=== PATIENT | female | born 1995 | race Caucasian/White ===

== ENCOUNTER 2017-03-14 00:26 | Emergency (ER) | payer BC ==
[~2017-03-14] VITALS: Ht 167.6 cm; Wt 62.3 kg
[~2017-03-14 00:26] MED LIST: CHOL20009 PO; SNG10 PO
[2017-03-14 00:35] VITALS: TEMP 36.7; Ht 167.6 cm; Wt 62.3 kg
[2017-03-14] MEDS ORDERED: LORAZEPAM 0.5 MG TAB SL STA (00:43)
[2017-03-14] MEDS ORDERED: KETOROLAC TROMETHAMINE 60 MG/2 ML VIAL IM STA (00:51)
[2017-03-14] MEDS ORDERED: MULTIVITAMIN TAB PO STA (00:52)
[2017-03-14] MEDS ORDERED: ASPIRIN 81 MG CHEW PO STA (00:52)
[2017-03-14] MEDS ORDERED: ACETAMINOPHEN 500 MG TAB PO STA (00:52)
[2017-03-14 01:35] VITALS: BP 119/68; PULSE 96; O2SAT 98
--- NOTE | 2017-03-14 02:06 | EMERGENCY ROOM VISIT NOTE ---
History Report prepared by Elida: Aundrea Rangel Under the Supervision of: Dr. Fernando Vega D.O. First contact with patient: 00:37 Chief Complaint: SUN BURN Stated Complaint: SHAKING/REACTION TO SUN POISIONING History of Present Illness The patient is a 21 year old female who presents to the Emergency Room with complaints of persistent shaking after getting sunburn today. She was at the pool today. She was lying on her back and ended up with sunburn on her front side. She has not been able to stop shaking from the pain. She has applied aloe 4 times today to no significant relief. She denies any chest pain, SOB, nausea, vomiting, diarrhea, or difficulty swallowing. She has not noticed any bubbles. She denies any new medications or recent travel. Source of History: patient Onset: today Position: other (global) Quality: other (shaking) Timing: other (persistent) Associated Symptoms: No chest pain, No SOB, No nausea, No vomiting, No diarrhea Note: Pt has sunburn pain. Pt denies difficulty swallowing. Review of Systems See HPI for pertinent positives & negatives. A total of 10 systems reviewed and were otherwise negative. Past Medical & Surgical Medical Problems: (1) Asthma Surgical Problems: (1) S/P tonsillectomy and adenoidectomy Family History Diabetes mellitus Heart disease Social History Smoking Status: Never Smoker Alcohol Use: none Housing Status: lives with family Occupation Status: employed, student Current/Historical Medications No Active Prescriptions or Reported Meds Allergies Coded Allergies: Amoxicillin (Verified Allergy, Unknown, UNKNOWN, 03/14/17) Penicillins (Verified Allergy, Unknown, 03/14/17) Physical Exam Vital Signs Date Time Temp Pulse Resp B/P (MAP) Pulse Ox O2 Delivery O2 Flow Rate FiO2 03/14/17 01:35 96 18 119/68 98 03/14/17 00:35 36.7 94 16 118/69 99 Room Air Physical Exam GENERAL: sitting up in bed, disheveled, anxious, nontoxic EYE EXAM: normal conjunctiva OROPHARYNX: no exudate, no erythema, lips, buccal mucosa, and tongue normal and mucous membranes are moist NECK: supple, no nuchal rigidity, no adenopathy, non-tender LUNGS: Clear to auscultation. Normal chest wall mechanics HEART: no murmurs, S1 normal and S2 normal ABDOMEN: abdomen soft, non-tender, normo-active bowel sounds, no masses, no rebound or guarding. BACK: Back is symmetrical on inspection and there is no deformity, no midline tenderness, no CVA tenderness. SKIN: diffuse erythema over the entirety of the anterior aspect of the body sparing the breasts and genitals, no blisters, no sloughing of the skin. UPPER EXTREMITIES: upper extremities are grossly normal. LOWER EXTREMITIES: No pitting edema. NEURO EXAM: Normal sensorium, cranial nerves II-XII grossly intact, normal speech, no gross weakness of arms, no gross weakness of legs. Medical Decision & Procedures Medications Administered Medications (Trade) Dose Ordered Sig/Kurtis Route Start Time Stop Time Status Last Admin Dose Admin Lorazepam (Ativan Tab) 0.5 mg NOW STAT SL 03/14/17 00:43 03/14/17 00:44 DC 03/14/17 01:10 0.5 MG Ketorolac Tromethamine (Toradol Inj) 60 mg NOW STAT IM 03/14/17 00:51 03/14/17 00:52 DC 03/14/17 01:10 60 MG Aspirin (Aspirin Chew) 324 mg NOW STAT PO 03/14/17 00:52 03/14/17 00:54 DC 03/14/17 01:09 324 MG Acetaminophen (Tylenol Tab) 1,000 mg NOW STAT PO 03/14/17 00:52 03/14/17 00:54 DC 03/14/17 01:10 1,000 MG Multivitamins (Multivitamin Tab) 1 tab NOW STAT PO 03/14/17 00:52 03/14/17 00:54 DC 03/14/17 01:10 1 TAB ED Course ED COURSE: Vital signs were reviewed and showed normal vitals. The patients medical record was reviewed The above diagnostic studies were performed and reviewed. ED treatments and interventions as stated above. 0038: The patient was evaluated in room B4. A complete history and physical examination was performed. 0043: Lorazepam 0.5 mg SL. 0051: Toradol Inj 60 mg IM. 0052: Multivitamins 1 tab PO, Acetaminophen 1000 mg PO, Aspirin 324 mg PO. 0128: Upon reevaluation, the patient is feeling better.I discussed my findings with the patient and she understands and agrees with the treatment plan. Based on the patients age, coexisting illnesses, exam and lab findings the decision to treat as an outpatient was made. The patient remained stable while under my care. The patient appeared well at the time of discharge. Medical Decision Differential diagnosis includes etiologies such as sunburn, cellulitis, abscess , MRSA infection, DVT, necrotizing fasciitis, dermatitis, drug eruption, as well as others were entertained. Medication Reconciliation: I attest that I have personally reviewed the patient' s current medication list. Blood pressure screening: Patient was found to have normal blood pressure on screening and does not require follow-up. Patient is a 21-year-old female who presents the ER for diffuse erythema on the anterior aspect of her body. She was out in the sun all day. She has a diffuse first degree burn on the anterior aspect of her body. She had a slight tremor in the upper extremities which resolves with movement and when distracted. She was given Ativan, IM Toradol, Tylenol, aspirin, and a MTV. Following this patient also felt better. She was discharged follow-up with her PCP and use aloe as needed along with Tylenol and Motrin. She was instructed not to drink alcohol, drive or operate heavy machinery for the next 12 hours. Discussed with Pt concerning signs and symptoms to watch out for. Pt was instructed to follow up with their PCP and discussed with the patient their option to return to the ED at anytime for persistent or worsening symptoms. The appropriate anticipatory guidance and out-patient management, including indications for return to the emergency department, were explained at length to the patient and understood. Impression Primary Impression: Sunburn Scribe Attestation The scribe's documentation has been prepared under my direction and personally reviewed by me in its entirety. I confirm that the note above accurately reflects all work, treatment, procedures, and medical decision making performed by me. Departure Information Dispostion Home / Self-Care Prescriptions No Active Prescriptions or Reported Meds Referrals Shanda Philippe, C.R.N.P. Forms HOME CARE DOCUMENTATION FORM, IMPORTANT VISIT INFORMATION, WORK / SCHOOL INSTRUCTIONS Patient Instructions [facility] [place] Additional Instructions Please follow up with your primary care doctor with in the next 24 hours. Any worsening of your symptoms, please return to the ED immediately. This includes fevers greater than 100.4, worsening pain, persistent nausea vomiting, confusion , or any other concerning signs or symptoms from your standpoint. Please continue Tylenol or Motrin as needed for pain. No driving, drinking alcohol or operating heavy machinery for the next 12 hours.
== END 2017-03-14 01:36 | disposition home or self-care (01) ==
LOC: C.EDB 00:27
DX: L55.9 Sunburn, unspecified (principal); J45.909 Unspecified asthma, uncomplicated; Z83.3 Family history of diabetes mellitus; Z82.49 Family history of ischemic heart disease and other diseases of the circulatory system

== ENCOUNTER → 2017-08-12 | Outpatient (CLI) | payer BC ==
[2017-08-16 02:18] LABS: CHLAMYDIA TRACH RNA*** NOT DETECTED (NOT DETECTED); GC (NEIS GONORRHOEAE)RNA** NOT DETECTED (NOT DETECTED); TRICHOMONAS VAGINALIS RNA** NOT DETECTED (NOT DETECTED)
== END | disposition home or self-care (01) ==
LOC: C.LABSPEC 11:42
PROVIDERS: ATTEND Obstetrics & Gynecology
DX: Z11.3 Encounter for screening for infections with a predominantly sexual mode of transmission (principal)

== ENCOUNTER 2021-12-10 04:19 | Inpatient (IN) ==
[2021-12-10] MEDS ORDERED: AZITHROMYCIN 250 MG TAB PO ONE ×2 (04:52→05:30)
[2021-12-10] MEDS ORDERED: BETAMETH SOD PHOS/ACETATE IA 6 MG/ML IM STA (04:52)
[2021-12-10] MEDS ORDERED: LACTATED RINGER'S 1,000 ML IV ONE (04:54)
[2021-12-10] MEDS ORDERED: LACTATED RINGER'S 1,000 ML IV PRN ×2 (04:54→07:34)
[2021-12-10] MEDS ORDERED: MAGNESIUM SULFATE / WTR 40 GM/1,000 ML BAG IV SCH (05:00)
[2021-12-10] MEDS ORDERED: MAG SULFATE 6GM BOLUS FROM BAG IV ONE (05:00)
[2021-12-10] MEDS ORDERED: ceFAZolin 1000MG 1,000 MG/7.5 ML SYR IV SCH (05:00)
--- NOTE | 2021-12-10 05:01 | History & Physical Report ---
Date of Service December 10, 2021 Assessment & Plan (1) PROM (premature rupture of membranes): (2) with 33 completed weeks gestation: (3) Gestational diabetes: Plan: grossly ruptures and nancy, uncomfortable with contractions. Will attempt tocolysis in the event we can eventually transfer with mag. steroids. abio for prom and gbs unknown status. Hives allergy to pcn, amoxicillin, so will treat with oral azithromycin and ancef, monitoring closely. Fetus category one. If able to get contractions to space, will attempt transfer. If cannot and labors, will have to keep here and likely the baby will need to be transferred. Patient expresses understanding. Will call [facility] to see about availability in event able to transfer. Will need to go by air if traveling. History of Present Illness Chief Complaint: thinks her water broke Primary Care Provider: YONATAN Alcantara Patient is a 26yowf with iup at 33 2/7 weeks who presents to labor and delivery c/o rom. She rolled over in bed at about 3:30am, heard a pop and had a large gush of clear fluid. She continues to contract. She notes +fm. NO bleeding. and Delivery Plans Patient does not want to discuss previous termination or STD History FOB hx Bicuspid valve disorder - echo 22-24 wk - baby needs 6month f/u after delivery Patient hx Asthma- uses inhaler PRN s/p pfizer GDM w/16wk glucola *Begin monthly AC Us's @24wks OB Labs: Blood Type A Positive 06/17/21 Antibody Screen NEGATIVE 06/17/21 Hemoglobin 13.0 g/dL (12.0-16.0) 11/04/21 Hematocrit 39.4 % (37-47) 11/04/21 Mean Corpuscular Volume 91.7 fL (80-100) 06/17/21 Platelet Count 355 K/uL (130-400) 06/17/21 Rubella IgG Antibody Immune (Immune) 06/17/21 Rapid Plasma Reagin Nonreactive (Nonreactive) 06/17/21 Hepatitis B Surface Antigen Neg (Neg) 06/17/21 HIV (1&2) Ab and P24 Ag, 4th Gener Neg (Neg) 06/17/21 Glucose 1 Hour 50 gm Load 204 mg/dl (70-130) H 08/14/21 OB Optional Labs: Chlamydia trachomatis RNA NOT DETECTED (NOT DETECTED) 06/17/21 Neisseria gonorrhoeae RNA NOT DETECTED (NOT DETECTED) 06/17/21 Labs Reviewed: declines genetics/cf/sma/afp--akh Allergies Allergy/AdvReac Type Severity Reaction Status Date / Time amoxicillin Allergy Unknown Hives Verified 12/10/21 04:49 Penicillins Allergy Unknown Hives Verified 12/10/21 04:49 lactose AdvReac Mild Unknown Verified 12/10/21 04:49 Home Medications Medication Instructions Recorded Confirmed Type albuterol sulfate 90 mcg/actuation See Rx Instructions INH .COMPLEX 12/17/19 12/10/21 Rx aerosol inhaler (Proventil HFA) PRN #6.7 gm cholecalciferol (vitamin D3) 1 tab PO DAILY 12/11/20 12/10/21 History prenat.vits,omer,[id number] 1 tab PO DAILY 06/10/21 12/10/21 History acetone (urine) test (Ketone Urine #50 ea 09/07/21 12/02/21 Rx Test) blood sugar diagnostic (OneTouch #150 ea 09/07/21 12/02/21 Rx Verio test strips) blood-glucose meter (OneTouch #1 ea 09/07/21 12/02/21 Rx Verio Flex meter) lancets 33 gauge (OneTouch Delica #150 ea 09/07/21 12/02/21 Rx Plus Lancet) Patient History Medical History Asthma Chlamydia 2015 No acute medical problems Surgical History S/P tonsillectomy Family History Brother Asthma Mother Breast cancer, Onset Age: 42 tested, BRCA negative Grandfather (Paternal) Lung cancer Grandfather (Paternal) No problems noted. 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 Beliefs That Will Affect Care: None marital status: Single marital status details: Tristian Wheeler (28) [phone] Current Living Situation: Significant Other Current Living Situation Comment: house current occupational status: student 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[employer] Other Information That Helps Us Care for You: No Feels Safe at Home: Yes Safety Concerns: Feels Safe At This Time Dental Care, Regularly: Yes Physical Activity Frequency: 1-2 Times per Week Seatbelt Use: always Assistive Devices: None OB History G1--10/2014, eab [employer] History noncontributory Physical Exam Constitutional: WD/WN, vitals as above Cardiovascular: Extremities: no calf tenderness and no edema Gastrointestinal (Abdomen): soft, gravid , nt Psychiatric: A+Ox3, euthymic affect Genitourinary: sse--difficult to visualize cervix secondary to copious clear fluid and mucous sve--/-2 bedside us--cephalic toco--q2min efm--150s wtih mod variability, small accels, no decels Results & Data ([facility]) Vital Signs (Past 12 Hours) Vital Signs Temp Pulse Resp BP 12/10/21 04:36 37.3 C 120 H 18 126/83 Coding Level of Care Code 93630 Office/Outpt Visit, Est Diagnoses PROM (premature rupture of membranes) O42.90 with 33 completed weeks gestation Z3A.33 Gestational diabetes O24.419
[2021-12-10 05:36] LABS: Basophils # (auto) 0.01 K/uL (0-0.2); Basophils % (auto) 0.1 %; Eosinophils # (auto) 0.09 K/uL (0-0.5); Eosinophils % (auto) 1.2 %; Hematocrit (blood only) 38.9 % (37-47); Hemoglobin 13.4 g/dL (12.0-16.0); Immature Granulocytes # (auto) 0.03 K/uL (0.00-0.02); Immature Granulocytes % (auto) 0.4 %; Lymphocytes # (auto) 0.75 K/uL (1.2-3.4); Lymphocytes % (auto) 9.8 %; Mean Corpuscular Hemoglobin 32.1 pg (25-34); Mean Corpuscular Hgb Conc 34.4 g/dL (32-36); Mean Corpuscular Volume 93.1 fL (80-100); Mean Platelet Volume 10.9 fL (7.4-10.4); Monocytes # (auto) 0.52 K/uL (0.11-0.59); Monocytes % (auto) 6.8 %; Neutrophils # (auto) 6.24 K/uL (1.4-6.5); Neutrophils % (auto) 81.7 %; Platelet Count 170 K/uL (130-400); RDW Coefficient of Variation 13.4 % (11.5-14.5); RDW Standard Deviation 45.7 fL (36.4-46.3); Red Blood Count 4.18 M/uL (4.2-5.4); White Blood Count 7.64 K/uL (4.8-10.8)
--- NOTE | 2021-12-10 05:37 | Obstetrical Progress Note ---
Date of Service December 10, 2021 Assessment & Plan (1) with 33 completed weeks gestation: (2) PROM (premature rupture of membranes): Plan: Contractions are spacing with mag. antibiotics in and steroids given. fetus category one consistent with mag effect. Spoke with Dr. Valero at [facility] and they will accept in transfer. Feel comfortable transferring via helicopter, but if unavailable, may need to keep here longer to make sure not going to actively labor on us, but again, looks like improving and spacing. Subjective Patient has received all meds. 6 gm bolus now going in. Vomitted. Notes contractions less intense and spacing some. Physical Exam Physical Exam: cx--deferred toco--q5 efm--150s with min to mod variabilty from mag effect, no decels Results & Data ([facility]) Vital Signs (Past 12 Hours) Vital Signs Temp Pulse Resp BP 12/10/21 04:51 37.3 C 18 12/10/21 04:36 37.3 C 120 H 18 126/83 PG Care Time/CCT Total # of Minutes Spent Total Time Spent with Patient: Total time spent is greater than 50% in coordination of care (as documented) at patient's floor/unit and/or counseling patient: Coding Level of Care Code None Diagnoses with 33 completed weeks gestation Z3A.33 PROM (premature rupture of membranes) O42.90
--- NOTE | 2021-12-10 06:35 | Obstetrical Progress Note ---
Date of Service December 10, 2021 Assessment & Plan (1) with 33 completed weeks gestation: (2) PROM (premature rupture of membranes): Plan: Patient is unchanged, and contractions are spaced but not adequate. Plan to bolus 2gm and increase to 3 gm per hour. No one is flying currently. Soonest we can get an ambulance from our services is 10am. [facility] is checking air again at 7 and if not flying will send an ambulance from their facility, which would mean a 9am arrivial. If patient starts changing, will turn off mag and let her labor and deal with the baby. If no change in cervix, will place on ambulance when it arrives. Patient was unable to keep down the azithromycin. Fetus reassuring category one. Subjective Patient notes contractions are spaced, shorter and less intense. Physical Exam Physical Exam: cx--/-2 toco--q3-5min, mag at 2 efm--150s with mod variability, no accels , no decels, mag effect Results & Data ([facility]) Vital Signs (Past 12 Hours) Vital Signs Temp Pulse Resp BP Pulse Ox 12/10/21 06:28 115 H 99 12/10/21 06:23 112 H 100 12/10/21 06:22 120 H 117/72 12/10/21 06:18 109 H 98 12/10/21 06:13 110 H 98 12/10/21 06:08 115 H 98 12/10/21 06:07 109 H 120/75 12/10/21 06:03 112 H 99 12/10/21 05:58 120 H 100 12/10/21 05:53 126 H 98 12/10/21 05:52 116 H 110/63 12/10/21 05:48 115 H 99 12/10/21 05:43 123 H 98 12/10/21 05:38 120 H 99 12/10/21 05:37 116 H 112/74 12/10/21 04:51 37.3 C 18 12/10/21 04:36 37.3 C 120 H 18 126/83 PG Care Time/CCT Total # of Minutes Spent Total Time Spent with Patient: Total time spent is greater than 50% in coordination of care (as documented) at patient's floor/unit and/or counseling patient: Coding Level of Care Code None Diagnoses with 33 completed weeks gestation Z3A.33 PROM (premature rupture of membranes) O42.90
[2021-12-10] MEDS ORDERED: AZITHROMYCIN 500 MG in DEXTROSE 5% 250 ML IV STA (06:36)
[2021-12-10] MEDS ORDERED: MAG SULFATE BOLUS FROM BAG IV ONE (06:45)
[2021-12-10] MEDS ORDERED: ePHEDrine sulfate 50 MG/ML AMP ONE (07:30)
[2021-12-10] MEDS ORDERED: SODIUM CHLORIDE 0.9% INJ 10 ML VIAL ONE (07:30)
[2021-12-10] MEDS ORDERED: BUPIVACAINE 0.25% 30 ML VIAL ONE (07:31)
[2021-12-10] MEDS ORDERED: fentaNYL citrate 100 MCG/2 ML VIAL ONE (07:31)
[2021-12-10] MEDS ORDERED: fentaNYL 2MCG/ML ROPIVACAINE 1.25MG/ML 100 ML BAG EPI ONE (07:31)
--- NOTE | 2021-12-10 07:32 | Anesthesiology Consultation ---
Date of Service December 10, 2021 Assessment & Plan (1) Encounter for pre-operative examination: Chart Review Chart Review: Acceptable Risk for Labor Epidural History Height/Weight Height: 5 ft 5 in Weight: 164 kg Allergies Allergy/AdvReac Type Severity Reaction Status Date / Time amoxicillin Allergy Unknown Hives Verified 12/10/21 04:49 Penicillins Allergy Unknown Hives Verified 12/10/21 04:49 lactose AdvReac Mild Unknown Verified 12/10/21 04:49 Medications Home Medications Medication Instructions Recorded Confirmed Last Taken albuterol sulfate 90 mcg/actuation See Rx Instructions INH .COMPLEX 12/17/19 12/10/21 Unknown aerosol inhaler (Proventil HFA) PRN #6.7 gm cholecalciferol (vitamin D3) 1 tab PO DAILY 12/11/20 12/10/21 Unknown prenat.vits,omer,[id number] 1 tab PO DAILY 06/10/21 12/10/21 12/09/21 acetone (urine) test (Ketone Urine #50 ea 09/07/21 12/02/21 Unknown Test) blood sugar diagnostic (OneTouch #150 ea 09/07/21 12/02/21 Unknown Verio test strips) blood-glucose meter (OneTouch #1 ea 09/07/21 12/02/21 Unknown Verio Flex meter) lancets 33 gauge (OneTouch Delica #150 ea 09/07/21 12/02/21 Unknown Plus Lancet) Active Medications Generic Name Dose Route Start Last Admin Trade Name Freq PRN Reason Stop Dose Admin Cefazolin Sodium 1,000 mg in 7.5 mls @ 2.5 mls/min 12/10/21 05:00 12/10/21 05:13 Ancef 1000mg IV 12/20/21 04:59 2.5 mls/min Q8 DOROTHEA Administration Lactated Ringer's 1,000 mls @ 125 mls/hr 12/10/21 04:54 12/10/21 07:12 Lr IV 12/12/21 04:53 0 mls/hr .Q8H PRN Infusion L&D Protocol Protocol Magnesium Sulfate 40 gm in 1,000 mls @ 0 mls/hr 12/10/21 05:00 12/10/21 07:23 Magnesium Sulfate / Wtr IV 01/09/22 04:59 0 mls/hr .Q0M DOROTHEA Infusion Azithromycin 500 mg/ Dextrose 255 mls @ 127.5 mls/hr 12/10/21 06:36 12/10/21 07:10 IV 12/10/21 08:35 127.5 mls/hr NOW STA Administration Past Medical History Medical History (Updated 12/10/21 @ 07:32 by Bryan Higginbotham MD) Asthma Chlamydia 2016 Gestational diabetes No acute medical problems Past Family History Family History Brother Asthma Mother Breast cancer, Onset Age: 42 tested, BRCA negative Grandfather (Paternal) Lung cancer Grandfather (Paternal) No problems noted. Grandfather (Maternal) Stroke Denies family history of Ovarian cancer Prostate cancer Myocardial infarction Colorectal cancer Past Surgical History Surgical History S/P tonsillectomy Social History Smoking Status: Never smoker Hx Alcohol Use: No Hx Substance Use: No Physical Exam Vital Signs Last Vital Signs Temp 36.8 C 12/10/21 06:30 Pulse 123 H 12/10/21 07:28 Resp 18 12/10/21 04:51 BP 112/68 12/10/21 07:22 Pulse Ox 94 12/10/21 07:28 Testing Laboratory Results 12/10/21 05:22 12/10/21 05:07 POC Glucose 86
[2021-12-10] MEDS ORDERED: OXYTOCIN 30 UNITS/500 ML BAG IV PRN ×2 (07:34→13:12)
--- NOTE | 2021-12-10 07:41 | Labor Progress Brief Note ---
Date of Service December 10, 2021 Subjective Patient got very quickly much more uncomfortable. She is moaning with contractions. Assessment & Plan (1) with 33 completed weeks gestation: (2) PROM (premature rupture of membranes): Plan: Patient is laboring and failing mag. It is now no longer safe for her to be transferred. This is canceled. Fetus overall reassuring. gbs unknown--ancef tolerated well. Will get epidural. d/c mag. one dose of steriods on board. Signed out to DR. Chow. Dr. Copeland aware of situation. Physical Exam Physical Exam: cx--/-2 toco--q2-3min efm--150s with mod variability, no accels, small rare variable Results & Data ([facility]) Vital Signs (Past 12 Hours) Vital Signs Temp Pulse Resp BP Pulse Ox 12/10/21 07:33 109 H 99 12/10/21 07:28 123 H 94 12/10/21 07:23 126 H 100 12/10/21 07:22 116 H 112/68 12/10/21 07:21 124 H 93 12/10/21 07:18 112 H 100 12/10/21 07:13 114 H 98 12/10/21 07:08 132 H 99 12/10/21 07:07 112 H 121/79 12/10/21 07:03 122 H 99 12/10/21 06:58 109 H 97 12/10/21 06:53 128 H 120/80 95 12/10/21 06:48 130 H 96 12/10/21 06:43 133 H 98 12/10/21 06:38 116 H 99 12/10/21 06:37 116 H 117/74 12/10/21 06:33 109 H 98 12/10/21 06:30 36.8 C 12/10/21 06:28 115 H 99 12/10/21 06:23 112 H 100 12/10/21 06:22 120 H 117/72 12/10/21 06:18 109 H 98 12/10/21 06:13 110 H 98 12/10/21 06:08 115 H 98 12/10/21 06:07 109 H 120/75 12/10/21 06:03 112 H 99 12/10/21 05:58 120 H 100 12/10/21 05:53 126 H 98 12/10/21 05:52 116 H 110/63 12/10/21 05:48 115 H 99 12/10/21 05:43 123 H 98 12/10/21 05:38 120 H 99 12/10/21 05:37 116 H 112/74 12/10/21 04:51 37.3 C 18 12/10/21 04:36 37.3 C 120 H 18 126/83 Coding Level of Care Code None Diagnoses with 33 completed weeks gestation Z3A.33 PROM (premature rupture of membranes) O42.90
[2021-12-10] MEDS ORDERED: ceFAZolin 1000MG 1,000 MG/7.5 ML SYR IV PRN (07:45)
[2021-12-10] MEDS ORDERED: ONDANSETRON INJ 2 MG/ML 2 ML VIAL IV PRN (07:52)
[2021-12-10] MEDS ORDERED: ePHEDrine sulfate 50 MG/ML AMP IV PRN (07:52)
[2021-12-10] MEDS ORDERED: NALOXONE HCL 1 MG in SODIUM CHLORIDE 0.9% 1000ML 1,000 ML IV PRN (07:52)
[2021-12-10] MEDS ORDERED: NALOXONE HCL 0.4 MG/1 ML VIAL/CARP IV PRN (07:52)
[2021-12-10] MEDS ORDERED: fentaNYL 2MCG/ML ROPIVACAINE 1.25MG/ML 100 ML BAG EPI PRN (07:52)
--- NOTE | 2021-12-10 09:21 | Labor Progress Brief Note ---
Date of Service December 10, 2021 Subjective comfortable Assessment & Plan (1) with 33 completed weeks gestation: (2) PROM (premature rupture of membranes): Plan: comfortable now with epidural, continues to progress, fetus category two but reassuring. continue current management. Admission and Anticipated Discharge Date Admission Date: December 10, 2021 Physical Exam Physical Exam: cx--5/100/-2 toco--q3-5 efm--145 with mod variability, small accels, variable/early with some contractions Results & Data ([facility]) Vital Signs (Past 12 Hours) Vital Signs Temp Pulse Resp BP Pulse Ox 12/10/21 09:19 108 H 124/79 12/10/21 09:18 108 H 97 12/10/21 09:13 112 H 95 12/10/21 09:08 125 H 96 12/10/21 09:03 114 H 105/56 L 95 12/10/21 08:58 123 H 95 12/10/21 08:57 111 H 93 12/10/21 08:53 128 H 95 12/10/21 08:48 134 H 116/71 95 12/10/21 08:45 18 12/10/21 08:43 131 H 95 12/10/21 08:38 140 H 96 12/10/21 08:35 137 H 94 12/10/21 08:33 115 H 95 12/10/21 08:31 118 H 116/69 12/10/21 08:30 18 12/10/21 08:28 109 H 95 12/10/21 08:27 122 H 111/71 12/10/21 08:23 119 H 96 12/10/21 08:21 117 H 117/69 12/10/21 08:18 113 H 95 12/10/21 08:16 118 H 120/70 12/10/21 08:15 18 12/10/21 08:13 125 H 96 12/10/21 08:11 121 H 115/68 12/10/21 08:10 36.8 C 18 12/10/21 08:09 121 H 118/71 12/10/21 08:08 122 H 96 12/10/21 08:07 118 H 117/72 12/10/21 08:05 113 H 18 116/73 12/10/21 08:03 125 H 117/76 96 12/10/21 08:01 127 H 111/70 12/10/21 07:59 114 H 111/68 12/10/21 07:58 123 H 97 12/10/21 07:57 123 H 112/67 12/10/21 07:55 130 H 18 115/76 12/10/21 07:53 116 H 115/65 96 12/10/21 07:51 111 H 116/74 12/10/21 07:50 18 12/10/21 07:49 118 H 114/75 12/10/21 07:48 112 H 99 12/10/21 07:43 128 H 99 12/10/21 07:39 117 H 120/68 12/10/21 07:38 119 H 100 12/10/21 07:33 109 H 99 12/10/21 07:28 123 H 94 12/10/21 07:23 126 H 100 12/10/21 07:22 116 H 112/68 12/10/21 07:21 124 H 93 12/10/21 07:18 112 H 100 12/10/21 07:13 114 H 98 12/10/21 07:08 132 H 99 12/10/21 07:07 112 H 121/79 12/10/21 07:03 122 H 99 12/10/21 06:58 109 H 97 12/10/21 06:53 128 H 120/80 95 12/10/21 06:48 130 H 96 12/10/21 06:43 133 H 98 12/10/21 06:38 116 H 99 12/10/21 06:37 116 H 117/74 12/10/21 06:33 109 H 98 12/10/21 06:30 36.8 C 12/10/21 06:28 115 H 99 12/10/21 06:23 112 H 100 12/10/21 06:22 120 H 117/72 12/10/21 06:18 109 H 98 12/10/21 06:13 110 H 98 12/10/21 06:08 115 H 98 12/10/21 06:07 109 H 120/75 12/10/21 06:03 112 H 99 12/10/21 05:58 120 H 100 12/10/21 05:53 126 H 98 12/10/21 05:52 116 H 110/63 12/10/21 05:48 115 H 99 12/10/21 05:43 123 H 98 12/10/21 05:38 120 H 99 12/10/21 05:37 116 H 112/74 12/10/21 04:51 37.3 C 18 12/10/21 04:36 37.3 C 120 H 18 126/83 Coding Level of Care Code None Diagnoses with 33 completed weeks gestation Z3A.33 PROM (premature rupture of membranes) O42.90
[2021-12-10] MEDS ORDERED: NURSING L&D Epidural Breakthrough Pain Update ONE (10:30)
[2021-12-10] MEDS ORDERED: DIPHTHERIA/TETANUS/PERTUSSIS 0.5 ML SYR/VIAL IM ONE (13:12)
[2021-12-10] MEDS ORDERED: IBUPROFEN 600 MG TAB PO PRN (13:12)
[2021-12-10] MEDS ORDERED: oxyCODONE/ACETAMINOPHEN 5mg/325mg TAB PO PRN (13:12)
[2021-12-10] MEDS ORDERED: ACETAMINOPHEN 325 MG TAB PO PRN (13:12)
[2021-12-10] MEDS ORDERED: bisacodyL 10 MG SUPP PR PRN (13:12)
[2021-12-10] MEDS ORDERED: BENZOCAINE 20% AER SPR 82.5 GM CAN EXT PRN (13:12)
[2021-12-10] MEDS ORDERED: HYDROCORTISONE ACETATE 25 MG SUPP PR PRN (13:12)
--- NOTE | 2021-12-10 16:19 | Delivery Summary ---
Vaginal Delivery Summary Date of Service December 10, 2021 Vaginal Delivery Summary Patient is a 26-year-old G1, P0 white female who presented at 33-2/7 weeks with spontaneous rupture of membranes for clear fluid. Despite magnesium sulfate infusion she developed regular spontaneous contractions and made enough cervical change to prevent transfer to a tertiary care facility. She received effective epidural analgesia. She progressed to complete dilation with the urge to push. She pushed effectively over intact perineum for delivery of a viable female infant. After the head was delivered there was a tight nuchal cord which had to be clamped and cut prior to delivering the rest of the . The rest of the infant delivered easily and was placed on the mother's abdomen for further attention and drying. There was spontaneous crying at the time of delivery. The nursery team and Dr. Shepherd were present for the delivery. The placenta was expressed intact with a three-vessel cord after cord blood was obtained. bleeding was controlled with dilute Pitocin. Estimated blood loss was 400 cc. Mother and were stable in the immediate period. [facility] Vaginal Delivery Charge Delivery Type Details: [facility]
[2021-12-10] MEDS: DOCUSATE SODIUM 100 MG CAP PO SCH (21:28)
[2021-12-11 06:09] LABS: Hematocrit (blood only) 36.6 % (37-47); Hemoglobin 12.2 g/dL (12.0-16.0); Mean Corpuscular Hemoglobin 31.4 pg (25-34); Mean Corpuscular Hgb Conc 33.3 g/dL (32-36); Mean Corpuscular Volume 94.1 fL (80-100); Mean Platelet Volume 11.2 fL (7.4-10.4); Platelet Count 199 K/uL (130-400); RDW Coefficient of Variation 13.6 % (11.5-14.5); RDW Standard Deviation 46.5 fL (36.4-46.3); Red Blood Count 3.89 M/uL (4.2-5.4); White Blood Count 10.37 K/uL (4.8-10.8)
--- NOTE | 2021-12-11 06:37 | Obstetrical Progress Note ---
Date of Service <Kait Brian MD - Last Filed: 12/11/21 07:19> December 11, 2021 Assessment & Plan <Kait Brian MD - Last Filed: 12/11/21 07:19> (1) Vaginal delivery: 26 yo now PPD1 from at 33+2 -Continue routine care, discharge today so pt can go to [facility] to be with child -Vitals reviewed- HDS, afebrile -Blood type A+, GBS unknown (treated with abx intrapartum), Rubella immune -Encourage ambulation -Pain control with ibuprofen, acetaminophen PRN -Encourage -Hgb 12.2 today -F/u in 6 weeks with OB <Paola Fernandez MD, FACOG - Last Filed: 12/11/21 07:51> (1) Vaginal delivery: Subjective <Kait Brian MD - Last Filed: 12/11/21 07:19> Ambulation: ambulating normally Voiding: no voiding problems Passing Gas:: Yes Diet Tolerance:: regular diet Lochia:: Small Feeding Type:: breast feeding Current Pain Level(1-10): 0 Pt doing well overall, no acute complaints or distress. Pain well controlled with medication. Baby is doing well at [place]. Review of Systems Denies fever/chills. Denies dyspnea, cough. Denies chest pain. Denies breast pain or discharge. Denies dysuria. Denies headache. Denies back pain. Physical Exam <Kait Brian MD - Last Filed: 12/11/21 07:19> General: Alert, oriented, no acute distress Cardiac: Regular rate and rhythm, normal S1, S2. No murmurs appreciated. Respiratory: Clear to auscultation b/l with good air flow entry, symmetric chest rise and fall. No wheezes or crackles. No increased work of breathing or accessory muscle use Abdomen: Soft, nontender, nondistended. Fundus firm and palpable at 2 cm below umbilicus. No guarding or rebound. Skin: No rashes or lesions Extremities: Warm, dry, well-perfused with capillary refill <2s b/l. No lower extremity edema, erythema or swelling. Negative Lobo's sign b/l. Results & Data ([facility]) <Kait Brian MD - Last Filed: 12/11/21 07:19> Vital Signs (Past 12 Hours) Vital Signs Temp Pulse Resp BP Pulse Ox 12/11/21 05:00 36.4 C L 80 18 119/74 97 12/10/21 23:30 36.4 C L 84 18 109/71 97 12/10/21 19:45 36.4 C L 91 H 18 125/82 98 <Paola Fernandez MD, FACOG - Last Filed: 12/11/21 07:51> Co-Signing Physician Notes Resident Physician Supervision Note: I interviewed and examined the patient. Discussed with Dr. Brian and agree with findings and plan as documented in the note. Any exceptions or clarifications are listed here: [None] Documented By: Paola Fernandez MD, FACOG Resident Activity Tracking <Kait Brian MD - Last Filed: 12/11/21 07:19> Resident Involvement: Resident Care Provided Care Provided: OB Delivery
[2021-12-11] MEDS: DOCUSATE SODIUM 100 MG CAP PO SCH (07:31)
[2021-12-11] MEDS ORDERED: PRENATAL VITAMIN 1 TAB PO SCH (08:00)
[2021-12-11] MEDS ORDERED: bisacodyL 5 MG TABEC PO SCH (20:00)
== END 2021-12-11 10:35 | disposition home or self-care (01) | DRG 807 ==
LOC: OPB 04:19 → 4S1 04:21 → 4S2 16:04

== ENCOUNTER 2023-06-08 05:27 | Inpatient (IN) ==
--- NOTE | 2023-06-07 15:32 | Anesthesiology Consultation ---
Date of Service June 07, 2023 Assessment & Plan (1) Encounter for pre-operative examination: Chart Review Chart Review: entry level chemist initiated -Infectious Disease screening: Per PAT nursing assessment on 06/07/23. No known infectious disease contacts in past 10 days or current infectious disease symptoms. No recent travel outside the country. Seen by OB 06/07/2023 = BABY B, extremely difficult study due to positions, efw= 24%, ac= 56%, twin weight discordance= 11.7%. BABY A, extremely difficult study due to position, efw= 6%, ac=<2%, uad/dvp= wnl. BREECH. D/W Dr. Sam who recommends delivery by [facility] tomorrow morning at 37w0d without steroids. ECHO 02/15/23= Twin A: Normal echocardiogram. Twin B: Normal echocardiogram. Recommend transthoracic echocardiogram on both babies at 6 months of age. History Surgery Operation Date: 06/08/23 07:30 Proposed Procedures p Section (Delivery of Baby Through Abdominal Incision) - Dara Bryant MD Height/Weight Height: 5 ft 6 in Weight: 78.925 kg Allergies Allergy/AdvReac Type Severity Reaction Status Date / Time amoxicillin Allergy Unknown Hives Verified 06/07/23 15:46 Penicillins Allergy Unknown Hives Verified 06/07/23 15:46 adhesive Allergy Rash Verified 06/07/23 15:56 lactose AdvReac Mild Unknown Verified 06/07/23 15:46 Medications Home Medications Medication Instructions Recorded Confirmed Last Taken prenat.vits,omer,hcw-dkrw-[id number] 1 tab PO DAILY 12/01/22 06/07/23 05/09/23 albuterol sulfate 90 mcg/actuation 2 puff inhalation Q4 PRN shortness 02/23/23 06/07/23 Unknown aerosol inhaler (Proventil HFA) of breath or wheezing ondansetron 4 mg disintegrating 4 mg PO Q6H PRN nausea and 02/23/23 06/07/23 Unknown tablet vomiting #20 tabs breast pump #1 ea 05/30/23 06/07/23 Unknown Past Medical History Medical History Asthma inh prn>has not used in last year Chlamydia 2016 Gestational diabetes Past Family History Family History Brother Asthma Mother Breast cancer, Onset Age: 42 tested, BRCA negative Grandfather (Paternal) Lung cancer Grandfather (Paternal) No problems noted. Grandfather (Maternal) Stroke Denies family history of Ovarian cancer Prostate cancer Myocardial infarction Colorectal cancer Past Surgical History Surgical History S/P tonsillectomy and adenoidectomy Social History Smoking Status: Never smoker Do You Dip or Chew Tobacco: No Hx Alcohol Use: No Hx Substance Use: No substance use type: does not use Lab Results Anesthesia Preop Results Results Anesthesia Widget: Hgb 12.1 g/dl (12.0-16.0) 04/11/23 Hct 36.2 % (37.0-47.0) L 04/11/23 Urine Color Yellow 04/11/23 Urine Appearance Clear (Clear) 04/11/23 Urine pH 7.0 (4.5-7.5) 04/11/23 Urine Specific [place] 1.016 (1.000-1.030) 04/11/23 Urine Protein Negative (Negative) 04/11/23 Urine Glucose (UA) Negative (Negative) 04/11/23 Urine Ketones Trace (Negative) H 04/11/23 Urine Blood Negative (Negative) 04/11/23 Urine Nitrite Negative (Negative) 04/11/23 Urine Bilirubin Negative (Negative) 04/11/23 Urine Urobilinogen Negative (Negative) 04/11/23 Urine Leukocyte Esterase Negative (Negative) 04/11/23
[~2023-06-08 05:27] MED LIST changes: +ALLERGY Noted to ORDERED Medication: Cefazolin SCH; -CHOL20009 PO; -SNG10 PO
[2023-06-08] MEDS ORDERED: SODIUM CHLORIDE 0.9% 250 ML IV PRN (05:38)
[2023-06-08] MEDS ORDERED: ceFAZolin 2,000 MG in SYRINGE 0 ML IV SCH (06:00)
[2023-06-08] MEDS ORDERED: LACTATED RINGER'S 1,000 ML IV SCH (06:00)
[2023-06-08] MEDS ORDERED: CITRIC ACID/SODIUM CITRATE 15 ML UDC PO SCH (06:00)
[2023-06-08 06:38] LABS: Basophils # (auto) 0.03 K/uL (0.00-0.20); Basophils % (auto) 0.4 %; Eosinophils # (auto) 0.21 K/uL (0.00-0.50); Eosinophils % (auto) 2.7 %; Hematocrit (blood only) 35.9 % (37.0-47.0); Hemoglobin 12.6 g/dl (12.0-16.0); Immature Granulocytes # (auto) 0.07 K/uL (0.01-0.20); Immature Granulocytes % (auto) 0.9 %; Lymphocytes # (auto) 1.04 K/uL (1.20-3.40); Lymphocytes % (auto) 13.4 %; Mean Corpuscular Hgb Conc 35.1 g/dL (32.0-36.0); Mean Corpuscular Volume 91.1 fL (80.0-100.0); Mean Platelet Volume 11.3 fL (9.4-12.4); Monocytes # (auto) 0.51 K/uL (0.11-0.59); Monocytes % (auto) 6.6 %; Neutrophils # (auto) 5.89 K/uL (1.40-6.50); Platelet Count 163 K/uL (130-400); RDW Coefficient of Variation 12.9 % (11.5-14.5); RDW Standard Deviation 42.5 fL (36.4-46.3); Red Blood Count 3.94 M/uL (4.20-5.40); White Blood Count 7.75 K/ul (4.8-10.8)
[2023-06-08 06:43] LABS: Appearance Urine Cloudy (Clear); Bacteria Urine Automated 1+ (Negative); Blood Urine Negative (Negative); Color Urine Dark Yellow; Epithelial Cell Urine Auto >30 /lpf (0-5); Glucose Urine UA Negative (Negative); Ketones Urine 4+ (Negative); Leukocyte Esterase Urine Negative (Negative); Nitrite Urine Negative (Negative); Protein Urine 1+ (Negative); Specific Gravity Urine 1.019 (1.000-1.030); Urobilinogen Urine Negative (Negative)
[2023-06-08 06:54] LABS: Bilirubin Urine 1+ (Negative)
[2023-06-08] MEDS ORDERED: MoRPHine SULFATE PF 1 MG/ML 10 ML AMP/VIAL ONE (06:57)
[2023-06-08] MEDS ORDERED: fentaNYL citrate PF 100 MCG/2 ML VIAL ONE (06:57)
[2023-06-08 07:01] LABS: RBC Urine Automated 0-4 /hpf (0-4)
[2023-06-08] MEDS ORDERED: ONDANSETRON INJ 2 MG/ML 2 ML VIAL ONE (07:28)
[2023-06-08] MEDS ORDERED: PHENYLEPHRINE 100MCG/ML 5ML SYR ONE (07:28)
[2023-06-08] MEDS ORDERED: OXYTOCIN 10 UNITS/ML VIAL ONE (07:28)
--- NOTE | 2023-06-08 07:29 | History & Physical Bridge Note ---
Date of Service June 08, 2023 History & Physical Bridge Note I have examined the patient, reviewed the History & Physical and in the interval since the performance of the History & Physical I have noted the following changes of clinical significance: no changes noted
[2023-06-08] MEDS ORDERED: NALOXONE HCL 1 MG in SODIUM CHLORIDE 0.9% 1,000 ML IV PRN (07:33)
[2023-06-08] MEDS ORDERED: ONDANSETRON INJ 2 MG/ML 2 ML VIAL IV PRN (07:33)
[2023-06-08] MEDS ORDERED: PROMETHAZINE HCL 6.25 MG in SODIUM CHLORIDE 0.9% 50 ML IV PRN (07:33)
[2023-06-08] MEDS ORDERED: NALOXONE HCL 0.08 MG in SYRINGE 1.8 ML IV PRN (07:33)
[2023-06-08] MEDS ORDERED: LACTATED RINGER'S 500 ML IV PRN (07:33)
[2023-06-08] MEDS ORDERED: HYDROmorphone INJ 0.5 MG/0.5 ML SYR IV PRN (07:33)
[2023-06-08] MEDS ORDERED: ePHEDrine sulfate 50 MG/ML AMP IV PRN (07:33)
[2023-06-08] MEDS ORDERED: diphenhydrAMINE 50 MG/ML VIAL IV PRN (07:33)
[2023-06-08] MEDS ORDERED: NALBUPHINE HCL INJ 10 MG/ML AMP IV PRN (07:33)
[2023-06-08] MEDS ORDERED: NALOXONE HCL 0.4 MG/1 ML VIAL/CARP IV PRN (07:33)
[2023-06-08] MEDS ORDERED: MoRPHine SULFATE PF 1 MG/ML 10 ML AMP/VIAL INT SPINAL ONE (07:33)
[2023-06-08] MEDS ORDERED: DC INTRASPINAL MORPHINE SCH (07:45)
[2023-06-08] MEDS ORDERED: NO NARCOTICS OR SEDATIVES SCH (07:45)
[2023-06-08] MEDS ORDERED: SODIUM CHLORIDE 0.9% 1,000 ML IV SCH (07:45)
[2023-06-08] MEDS ORDERED: KETAMINE 50 MG/5 ML SYRINGE ONE (08:10)
--- NOTE | 2023-06-08 08:52 | Operative Report ---
PG Post Operative Report Pre & Post Diagnosis Operation Date: 06/08/23 07:30 Pre-Op Diagnosis: Dichorioinic Diamniotic Twin , Breech Presentation of Baby A, IUGR Baby A Post-Op Diagnosis: Same I identified the patient and participated in the time-out.: Yes Procedure Operation Date: 06/08/23 07:30 Actual Procedures 1' Low Transverse Section Surgeon Dara Bryant MD Pottery Decorator Berenice Estimated Blood Loss 600 Findings Consistent with Post-Op Diagnosis Specimens Placenta x2, Cord Blood x2 Anesthesia Type Spinal Complications none Disposition Accompanied Patient To Recovery: Yes Disposition: L&D Description of Procedure The patient was placed operating table in the supine position with a leftward tilt. She was prepped and draped in standard sterile fashion. The anesthetic was tested and found to be adequate. A time-out was held, identifying correct patient, procedure, positioning and preoperative antibiotics. There were no concerns. A Pfannenstiel skin incision was made with a knife and taken down to the underlying layer of fascia. The fascia was incised in the midline with the knife and taken out laterally with scissors. The superior edge of the fascial incision was grasped, elevated and dissected off the underlying rectus both superiorly and inferiorly. The muscles were bluntly in the midline. The peritoneum was entered bluntly. The incision was then stretched. The patient at this time began to complain of significant discomfort. Surgery was paused and we discussed whether she would prefer to have GETA induction or to continue through delivery, with plan for additional analgesia and sedation after babies were born if she would like. She preferred that we continue, which we did in the least tissue-disruptive manner possible while still moving quickly to delivery of the babies. The bladder retractor was placed. The vesicouterine peritoneum was identified, entered with scissors and taken out laterally with scissors. The bladder flap was created digitally. A hysterotomy incision was created transversely in the lower uterine segment, final entry being accomplished in a blunt manner with the bottom saw operator's fingers. Clear amniotic fl uid was encountered. Baby A was presenting miriam breech. The feet were grasped and delivered one at a time, the sacrum was rotated anterior, the arms were swept, and the head was delivered gently. The cord was clamped and cut and the baby was moved to the warmer for the application developer manager to examine. She did not appear grossly to be IUGR, though her cord was notably thinner than Baby B's after both were visible. Baby B's amnion was then ruptured for clear fluid. The bottom saw operator's hand was used to elevate the head to the hysterotomy. The head was delivered using mild fundal pressure, and the shoulders and body followed without difficulty. The cord was clamped and cut and the infant was then handed off to the awaiting application developer manager. The placenta was Manually extracted. Cord blood was obtained from each cord *after* extraction. This was done to minimize uterine size and manipulation as quickly as possible for patient comfort. For the same reason, the uterus was left in situ at all times. It was cleared of all clot and debris with moistened laparotomy sponges. The hysterotomy incision was repaired in two layers, the first in a running locked layer, the second in an imbricating layer. The ovaries and tubes were not examined to minimize patient discomfort. A final inspection of the hysterotomy revealed good hemostasis. The rectus muscles were allowed to reapproximate naturally. The fascia was then reapproximated with 1 Vicryl in a running nonlocked manner. The fascia was examined and found to be free of defect following closure. The subcutaneous tissue was copiously irrigated and reapproximated with 0-chromic, then the skin edges were closed with 4-0 monocryl in a subcuticular fashion. A dermabond dressing was applied. The reyes was found to be draining clear yellow urine at completion of the procedure. I attest to the content of the Intraoperative Record and any orders documented therein. Any exceptions are noted below. I attest to the content of the Intraoperative Record and any orders documented therein. Any exceptions are noted below. OB Procedure Charges 29079
[2023-06-08] MEDS ORDERED: MAGNESIUM HYDROXIDE SUSP 30 ML UDC PO PRN (08:54)
[2023-06-08] MEDS ORDERED: ALBUTEROL HFA 8 GM INHALER INH PRN (08:54)
[2023-06-08] MEDS ORDERED: BENZOCAINE 20% SPRY 85 APPLN/85 GM CAN EXT PRN (08:54)
[2023-06-08] MEDS ORDERED: DIPHTHERIA/TETANUS/PERTUSSIS Vaccine (Tdap, Age 7+yrs) 0.5mL SYR/VL IM ONE (08:54)
[2023-06-08] MEDS ORDERED: SENNA 8.6 MG TAB PO PRN (08:54)
[2023-06-08] MEDS ORDERED: HYDROCORTISONE ACETATE 25 MG SUPP PR PRN (08:54)
--- NOTE | 2023-06-08 08:58 | Anesthesiology Progress Note ---
Date of Service June 08, 2023 Anesthesia Post Procedure Vital Signs Vital Signs: Temp Pulse Resp BP Pulse Ox 06/08/23 08:56 83 92 06/08/23 08:55 85 92 06/08/23 08:51 96 H 136/69 98 06/08/23 08:46 82 89 L 06/08/23 08:43 82 130/65 06/08/23 08:41 93 H 96 06/08/23 07:09 37.1 C 101 H 20 133/75 06/08/23 06:35 37.2 C 06/08/23 05:45 125 H 141/81 H 06/08/23 05:40 18 Transfer of Care Handoff Completed per policy Notes Mental Status: alert / awake / arousable and participated in evaluation Patient Amnestic to Procedure: No Nausea / Vomiting: adequately controlled Pain: adequately controlled Airway Patency, RR, SpO2: stable & adequate BP & HR: stable & adequate Hydration State: stable & adequate Neuraxial Anesthesia: was administered and sensory block is resolving Anesthetic Complications: no major complications apparent and Pt Satisfied with anesthetic care
[2023-06-08] MEDS ORDERED: OXYTOCIN 30 UNITS in LACTATED RINGER'S 1,000 ML IV SCH (09:25)
[2023-06-08] MEDS: KETOROLAC 30 MG/ML VIAL IV PRN ×2 (09:38→23:33)
[2023-06-08] MEDS: SIMETHICONE 80 MG CHEW PO SCH ×3 (12:36→21:03)
[2023-06-08] MEDS: DOCUSATE SODIUM 100 MG CAP PO SCH (21:03)
[2023-06-09] MEDS: CLINDAMYCIN/D5W 600 MG/50 ML BAG IV SCH ×5 (00:30→23:17)
[2023-06-09] MEDS ORDERED: KETOROLAC 30 MG/ML VIAL IV PRN (01:33)
[2023-06-09] MEDS ORDERED: diphenhydrAMINE Capsule 25 MG CAP PO PRN (01:33)
[2023-06-09] MEDS ORDERED: MEPERIDINE HCL 50 MG/ML CARP IV PRN (01:33)
[2023-06-09] MEDS ORDERED: PROMETHAZINE HCL 25 MG in SODIUM CHLORIDE 0.9% 50 ML IV PRN (01:33)
[2023-06-09] MEDS ORDERED: ONDANSETRON INJ 2 MG/ML 2 ML VIAL IV PRN (01:33)
[2023-06-09] MEDS ORDERED: diphenhydrAMINE 50 MG/ML VIAL IV PRN (01:33)
--- NOTE | 2023-06-09 05:26 | Obstetrical Progress Note ---
Date of Service <Panchito Darby DO - Last Filed: 06/09/23 07:14> June 09, 2023 Assessment & Plan <Panchito Darby DO - Last Filed: 06/09/23 07:14> (1) S/P section: (2) Fever: Plan Post-op day 1 s/p Vital signs reviewed and significant for overnight fever, Tmax 39.2 Pt feels well today apart from marked diaphoresis, eating, voiding, and ambulating well Pain well controlled with Toradol Routine post-op care - OOB, ambulation, diet progression as tolerated In addition to routine post-op care, will test for Covid, continue Clindamycin for the time being After discharge, will have 6 week follow-up with Dr. Bryant. <Dara Bryant MD - Last Filed: 06/09/23 07:28> (1) S/P section: (2) Fever: Subjective <Panchito Darby - Last Filed: 06/09/23 07:14> Ambulation: ambulating normally Voiding: no incontinence (has not voided since reyes catheter removal) Passing Gas:: Yes (no bowel movement since ) Lochia:: Small Feeding Type:: breast feeding Pain well-controlled with Toradol Review of Systems + fever and chills -Denies dyspnea, chest pain, or palpitations -Denies breast pain -Denies dysuria -Denies headache or changes in vision <Dara Bryant MD - Last Filed: 06/09/23 07:28> Voiding: no voiding problems Physical Exam <Panchito Darby - Last Filed: 06/09/23 07:14> General: Alert and oriented. No acute distress Cardiac: Regular rate and rhythm, no murmurs appreciated Respiratory: Lungs clear to auscultation bilaterally, No increased work of breathing Abdominal: Soft, non-tender, non-distended. Bowel sounds present. Uterus: Uterine fundus firm, palpable below umbilicus Integumentary: Incision site intact, clean and dry Extremities: No lower extremity edema, calves non-tender bilaterally Results & Data <Panchito Darby - Last Filed: 06/09/23 07:14> Vital Signs (Past 12 Hours) Vital Signs Temp Pulse Pulse Resp BP BP Pulse Ox 06/08/23 22:50 39.2 C H 97 H 18 120/73 98 06/08/23 21:00 16 96 06/08/23 20:00 15 97 06/08/23 21:45 06/08/23 21:45 37.5 C 96 H 16 123/74 97 06/08/23 19:00 16 98 06/08/23 18:00 16 96 06/08/23 17:00 16 97 06/08/23 16:00 16 97 06/08/23 15:00 16 98 06/08/23 14:00 16 99 06/08/23 13:00 16 98 06/08/23 16:10 37.2 C 76 16 136/82 100 O2 Del Method 06/08/23 22:50 Room Air 06/08/23 21:00 06/08/23 20:00 06/08/23 21:45 Room Air 06/08/23 21:45 Room Air 06/08/23 19:00 06/08/23 18:00 06/08/23 17:00 06/08/23 16:00 06/08/23 15:00 06/08/23 14:00 06/08/23 13:00 06/08/23 16:10 Room Air <Dara Bryant MD - Last Filed: 06/09/23 07:28> Co-Signing Physician Notes Resident Physician Supervision Note: I interviewed and examined the patient. Discussed with Dr. Darby and agree with findings and plan as documented in the note. Any exceptions or clarifications are listed here: Patient examined by this MD this morning, has enough perspiration to soak through large portions of her shirt, beads on her skin at the chest. Still some bilateral pedal edema. Abdomen is soft, postgravid with a fundus that is firm and below umbilicus despite recent twin delivery, and nontender even with significant pressure on palpation. Lochia is small. Temp during my visit 37.5C. Discussed with patient that her fever overnight was quite high, and yet it's very early after surgical delivery and therefore after opening of the amnion to see either incisional infection or endomyometritis. It's a higher fever than we typically would see with atelectasis. No breast pain or significant engorgement at this time. She denies sick contacts prior to arrival, has a completely negative ROS for both currently and prior to arrival as asked by this MD at the bedside this morning. Still, with high current rates of COVID in our area, I wonder if this reflects viral illness that is beginning to show itself. Started antibiotic overnight (allergy to Ampicillin, and did not want to use Gentamicin when diagnosis of endomyometritis so uncertain, so gave just clindamycin for now) and will also send biofire viral panel now. Patient aware to notify us of any changes in her symptoms that may help localize the etiology of her fever. Documented By: Dara Bryant MD, FACOG Resident Activity Tracking <Panchito Darby, - Last Filed: 06/09/23 07:14> Resident Involvement: Resident Care Provided Care Provided: OB Delivery
[2023-06-09] MEDS: oxyCODONE/ACETAMINOPHEN 5mg/325mg TAB PO PRN ×3 (06:02→20:08)
[2023-06-09] MEDS: IBUPROFEN 600 MG TAB PO PRN ×3 (06:03→20:07)
[2023-06-09 06:08] LABS: Basophils # (auto) 0.03 K/uL (0.00-0.20); Basophils % (auto) 0.3 %; Eosinophils # (auto) 0.11 K/uL (0.00-0.50); Hematocrit (blood only) 32.5 % (37.0-47.0); Hemoglobin 11.1 g/dl (12.0-16.0); Immature Granulocytes # (auto) 0.06 K/uL (0.01-0.20); Immature Granulocytes % (auto) 0.6 %; Lymphocytes # (auto) 1.84 K/uL (1.20-3.40); Lymphocytes % (auto) 17.4 %; Mean Corpuscular Hgb Conc 34.2 g/dL (32.0-36.0); Mean Corpuscular Volume 93.7 fL (80.0-100.0); Mean Platelet Volume 10.9 fL (9.4-12.4); Monocytes # (auto) 0.87 K/uL (0.11-0.59); Monocytes % (auto) 8.2 %; Neutrophils # (auto) 7.64 K/uL (1.40-6.50); Neutrophils % (auto) 72.5 %; Platelet Count 162 K/uL (130-400); RDW Coefficient of Variation 13.1 % (11.5-14.5); RDW Standard Deviation 44.3 fL (36.4-46.3); Red Blood Count 3.47 M/uL (4.20-5.40); White Blood Count 10.55 K/ul (4.8-10.8)
[2023-06-09] MEDS: FERROUS SULFATE 325 MG TAB PO SCH (08:19)
[2023-06-09] MEDS: DOCUSATE SODIUM 100 MG CAP PO SCH ×2 (08:19→20:07)
[2023-06-09] MEDS: PRENATAL VITAMIN 1 TAB PO SCH (08:19)
[2023-06-09] MEDS: SIMETHICONE 80 MG CHEW PO SCH ×4 (08:19→20:07)
[2023-06-09 10:07] LABS: Adenovirus PCR Not Detected (NotDetected); Bordetella parapertussis PCR Not Detected (NotDetected); Bordetella pertussis PCR Not Detected (NotDetected); Chlamydia pneumoniae PCR Not Detected (NotDetected); Coronavirus 229E PCR Not Detected (NotDetected); Coronavirus CoV-2 (COVID19)PCR Not Detected (NotDetected); Coronavirus HKU1 PCR Not Detected (NotDetected); Coronavirus NL63 PCR Not Detected (NotDetected); Coronavirus OC43PCR Not Detected (NotDetected); Human Metapneumovirus PCR Not Detected (NotDetected); Influenza A PCR Not Detected (NotDetected); Influenza B PCR Not Detected (NotDetected); Mycoplasma pneumoniae PCR Not Detected (NotDetected); Parainfluenza Virus 1 PCR Not Detected (NotDetected); Parainfluenza Virus 2 PCR Not Detected (NotDetected); Parainfluenza Virus 3 PCR Not Detected (NotDetected); Parainfluenza Virus 4 PCR Not Detected (NotDetected); Respiratory Syncytial VirusPCR Not Detected (NotDetected)
[2023-06-09 10:16] LABS: Rhinovirus/Enterovirus PCR DETECTED (NotDetected)
[2023-06-09] MEDS ORDERED: bisacodyL 5 MG TABEC PO SCH (20:00)
[2023-06-10] MEDS: oxyCODONE/ACETAMINOPHEN 5mg/325mg TAB PO PRN ×3 (05:54→18:04)
[2023-06-10] MEDS: IBUPROFEN 600 MG TAB PO PRN ×3 (05:54→18:04)
--- NOTE | 2023-06-10 06:34 | Obstetrical Progress Note ---
Date of Service <Panchito Darby DO - Last Filed: 06/10/23 06:56> June 10, 2023 Assessment & Plan <Panchito Darby DO - Last Filed: 06/10/23 06:56> (1) S/P section: (2) Rhinovirus infection: Plan Post-op day 2 s/p Vital signs reviewed and significant for tachycardia and fever, Tmax 39.3, yesterday afternoon, overnight vitals WNL Biofire positive for Rhinovirus, Clindamycin discontinued Pt feels well today, eating, voiding, and ambulating well Pain well controlled with Percocet and Motrin Routine post-op care - OOB, ambulation, diet progression as tolerated After discharge, will have 6 week follow-up with Dr. Bryant. <Fabrice Cardenas MD - Last Filed: 06/13/23 09:08> (1) S/P section: (2) Rhinovirus infection: Subjective <Panchito Darby DO - Last Filed: 06/10/23 06:56> Ambulation: ambulating normally Voiding: no voiding problems Passing Gas:: Yes (no bowel movement since ) Lochia:: Small Feeding Type:: breast feeding Pain well controlled with Percocet + Motrin Review of Systems -Denies fever or chills -Denies dyspnea, chest pain, or palpitations -Denies breast pain -Denies dysuria -Denies headache or changes in vision Physical Exam <Panchito Darby DO - Last Filed: 06/10/23 06:56> General: Alert and oriented. No acute distress Cardiac: Regular rate and rhythm, no murmurs appreciated Respiratory: Lungs clear to auscultation bilaterally, No increased work of breathing Abdominal: Soft, non-tender, non-distended. Bowel sounds present. Uterus: Uterine fundus firm, palpable below umbilicus Integumentary: Incision site intact, clean and dry Extremities: No lower extremity edema, calves non-tender bilaterally Results & Data <Panchito Darby DO - Last Filed: 06/10/23 06:56> Vital Signs (Past 12 Hours) Vital Signs Temp Pulse Resp BP Pulse Ox O2 Del Method 06/09/23 23:39 36.5 C 78 18 114/74 96 Room Air 06/09/23 19:15 36.9 C 91 H 18 114/75 97 Room Air <Fabrice Cardenas MD - Last Filed: 06/13/23 09:08> Co-Signing Physician Notes Patient seen with resident and agree with the above findings and plan. Routine OB care. Stable for discharge Resident Activity Tracking <Panchito Darby DO - Last Filed: 06/10/23 06:56> Resident Involvement: Resident Care Provided Care Provided: OB Delivery
[2023-06-10 06:44] LABS: Hematocrit (blood only) 33.4 % (37.0-47.0); Hemoglobin 11.3 g/dl (12.0-16.0)
[2023-06-10] MEDS: PRENATAL VITAMIN 1 TAB PO SCH (08:18)
[2023-06-10] MEDS: FERROUS SULFATE 325 MG TAB PO SCH (08:18)
[2023-06-10] MEDS: SIMETHICONE 80 MG CHEW PO SCH ×4 (08:18→20:46)
[2023-06-10] MEDS: DOCUSATE SODIUM 100 MG CAP PO SCH ×2 (08:18→20:46)
[2023-06-10] MEDS ORDERED: bisacodyL 10 MG SUPP PR PRN (08:41)
[2023-06-10] MEDS: LACTATED RINGER'S 1,000 ML IV SCH ×2 (19:23→19:24)
[2023-06-11] MEDS: oxyCODONE/ACETAMINOPHEN 5mg/325mg TAB PO PRN ×2 (00:25→05:21)
[2023-06-11] MEDS: IBUPROFEN 600 MG TAB PO PRN ×2 (00:26→05:21)
--- NOTE | 2023-06-11 05:51 | Obstetrical Progress Note ---
Date of Service <Panchito Darby DO - Last Filed: 06/11/23 06:57> June 11, 2023 Assessment & Plan <Panchito Darby DO - Last Filed: 06/11/23 06:57> (1) S/P section: (2) Rhinovirus infection: Plan Post-op day 3 s/p Vital signs reviewed and WNL Pt feels well today, eating, voiding, and ambulating well Pain well controlled with Percocet and Motrin Routine post-op care - OOB, ambulation, diet progression as tolerated After discharge, will have 6 week follow-up with Dr. Bryant. <Paola Fernandez MD, FACOG - Last Filed: 06/11/23 08:10> (1) S/P section: (2) Rhinovirus infection: Subjective <Panchito Darby DO - Last Filed: 06/11/23 06:57> Ambulation: ambulating normally Voiding: no voiding problems Passing Gas:: Yes (no bowel movement since ) Diet Tolerance:: regular diet Lochia:: Small Feeding Type:: breast feeding Pain well controlled with Percocet and Motrin Review of Systems -Denies fever or chills -Denies dyspnea, chest pain, or palpitations -Denies breast pain -Denies dysuria -Denies headache or changes in vision Physical Exam <Panchito Darby DO - Last Filed: 06/11/23 06:57> General: Alert and oriented. No acute distress Cardiac: Regular rate and rhythm, no murmurs appreciated Respiratory: Lungs clear to auscultation bilaterally, No increased work of breathing Abdominal: Soft, non-tender, non-distended. Bowel sounds present. Uterus: Uterine fundus firm, palpable below umbilicus Extremities: No lower extremity edema, calves non-tender bilaterally Results & Data <Panchito Darby DO - Last Filed: 06/11/23 06:57> Vital Signs (Past 12 Hours) Vital Signs Temp Pulse Resp BP Pulse Ox O2 Del Method 06/11/23 00:30 36.3 C L 79 18 119/74 96 Room Air 06/10/23 20:20 36.7 C 90 18 126/81 96 Room Air <Paola Fernandez MD, FACOG - Last Filed: 06/11/23 08:10> Co-Signing Physician Notes Resident Physician Supervision Note: I interviewed and examined the patient. Discussed with Dr. Darby and agree with findings and plan as documented in the note. Any exceptions or clarifications are listed here: [None] Documented By: Paola Fernandez MD, FACOG Resident Activity Tracking <Panchito Darby, DO - Last Filed: 06/11/23 06:57> Resident Involvement: Resident Care Provided Care Provided: OB Delivery
[2023-06-11] MEDS: PRENATAL VITAMIN 1 TAB PO SCH (08:07)
[2023-06-11] MEDS: FERROUS SULFATE 325 MG TAB PO SCH (08:07)
[2023-06-11] MEDS: SIMETHICONE 80 MG CHEW PO SCH (08:07)
[2023-06-11] MEDS: DOCUSATE SODIUM 100 MG CAP PO SCH (08:07)
--- NOTE | 2023-06-14 09:27 | Discharge Summary ---
Date of Service June 14, 2023 Discharge Data Procedures Performed Operation Date: 06/08/23 07:30 Actual Procedures p Section (Delivery of Baby Through Abdominal Incision) - Dara Bryant MD Hospital Course (1) S/P section: (2) Rhinovirus infection: Plan Post-op day 2 s/p Vital signs reviewed and significant for tachycardia and fever, Tmax 39.3, yesterday afternoon, overnight vitals WNL Biofire positive for Rhinovirus, Clindamycin discontinued Pt feels well today, eating, voiding, and ambulating well Pain well controlled with Percocet and Motrin Routine post-op care - OOB, ambulation, diet progression as tolerated After discharge, will have 6 week follow-up with Dr. Bryant. Coding Level of Care Code None Diagnoses S/P section Z98.891 Rhinovirus infection B34.8
== END 2023-06-11 12:13 | disposition home or self-care (01) | DRG 788 ==
LOC: 4S1 05:27 → 4E2 12:10 → EDSTATUS 06-16 07:30
DX: B97.89 Other viral agents as the cause of diseases classified elsewhere; Z3A.37 37 weeks gestation of pregnancy; Z37.2 Twins, both liveborn; O30.043 Twin pregnancy, dichorionic/diamniotic, third trimester